=== PATIENT | female | born 1960 | race Caucasian/White ===

== ENCOUNTER → 2019-04-24 17:23 | Outpatient (CLI) | payer MEDICAID | END | disposition home or self-care (01) | LOC: D.RAD 17:23 | PROVIDERS: ATTEND Family Medicine | DX: R05 Cough (principal) ==

== ENCOUNTER → 2019-11-02 12:13 | Outpatient (CLI) | payer MEDICAID | END | disposition home or self-care (01) | LOC: D.LAB 12:13 | PROVIDERS: ATTEND Family Medicine | DX: Z11.59 Encounter for screening for other viral diseases (principal) ==

== ENCOUNTER → 2019-11-05 14:06 | Outpatient (CLI) | payer MEDICAID | END | disposition home or self-care (01) | LOC: D.RT 14:00 | PROVIDERS: ATTEND Emergency Medicine | DX: J45.41 Moderate persistent asthma with (acute) exacerbation (principal) ==